=== PATIENT | male | born 2000 | race Caucasian/White ===

== ENCOUNTER 2021-01-17 12:43 | Emergency (ER) | payer SELFPAY ==
--- NOTE | ~2021-01-17 | XR_ITS ---
EXAMINATION: XR abdomen/kub 1V EXAM DATE: 01/17/2021 13:30 INDICATION: Bilateral back pain 01/16/21. TECHNIQUE: Frontal projection of the upper abdomen, frontal projection lower abdomen/pelvis for inter pretation. There is no prior study for comparison. FINDINGS: There is expected amount of colonic stool and gas. No small bowel dilation, nonobstructiv e bowel gas pattern. There are no suspicious calcifications identified. There is no organomegaly suspected. Possible bilateral L5 spondylolysis. Lung bases are clear. IMPRESSION: Possible bilateral L5 spondylolysis. Reviewed, dictated and finalized at location A.
[2021-01-17 12:48] VITALS: BP 112/59; PULSE 101; RESP 16; TEMP 36.6; O2SAT 100
--- NOTE | 2021-01-17 13:06 | ED.MALEGU ---
HPI - Male Genitourinary General Chief complaint: Urogenital-Male Stated complaint: kidney pain Time Seen by Provider: 01/17/21 13:05 Source: patient and RN notes reviewed Mode of arrival: ambulatory Limitations: no limitations History of Present Illness HPI Narrative: 20-year-old male presents with concern for bilateral flank pain. He reports symptoms started this morning reports pain is a 7/10. 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 He denies dysuria, urgency, frequency, hematuria, fever. He reports yesterday he had body aches, chills. Denies those symptoms today. He has been taking Augmentin for approximately 5 days for a soft tissue infection. He denies loss of bowel or bladder function, change in bowel habits, constipation, perianal anesthesia, weakness in any extremity. He denies intervention. MD Complaint: other (Flank pain) Related Data Home Medications Medication Instructions Recorded Confirmed amoxicillin-pot clavulanate 1 tablet PO Q12H 01/17/21 01/17/21 [Augmentin] Allergies Allergy/AdvReac Type Severity Reaction Status Date / Time No Known Allergies Allergy Verified 01/17/21 12:55 Review of Systems Review of Systems: Narrative: CONSTITUTIONAL: Denies malaise, chills, sweats, or fever. CARDIOVASCULAR: Denies chest pain, palpitations, or edema. RESPIRATORY: Denies cough or dyspnea. GASTROINTESTINAL: Denies abdominal pain, nausea, vomiting, diarrhea, bloody, or mucous stools. GENITOURINARY: Denies dysuria frequency, urgency, or hematuria. SKIN: Denies bruising, redness MUSCULOSKELETAL: Reports bilateral mid back pain. History of myalgia yesterday NEUROLOGIC: Denies numbness, weakness, or headache. All systems reviewed & are unremarkable except as noted in HPI and below PMFSH Comments At time of signature, agree with nursing past medical, surgical, social and family history. There is no relevant family history pertinent to the presenting complaint Exam Narrative: Exam Narrative: GENERAL: Well-appearing, well-nourished, and in no acute distress. HEAD: Normocephalic, atraumatic. EYES: PERRLA and EOMI. NECK: Supple. No lymphadenopathy. CHEST: Clear to auscultation. No respiratory distress. HEART: Regular rate and rhythm. Distal pulses palpable and equal, cap refill <3 seconds ABDOMEN: Soft, nontender, nondistended, normal active bowel sounds, no palpable or pulsatile masses. No CVA tenderness MUSCULOSKELETAL: Normal range of motion and strength in all extremities; 5/5 strength with hip flexion and extension, dorsiflexion and extension, knee flexion and extension, plantar flexion and extension. Normal sensation in dermatomal distributions with sensitivity to light touch and pain. No midline back tenderness to palpation. No paraspinal tenderness. Transfers from lying to sitting to standing. SKIN: Warm, dry, no rash. No ecchymosis, erythema, open wounds to back. NEURO: No focal deficits. Alert and oriented x3. Reflexes intact. Normal gait. PSYCH: Normal mood and affect Course Course Emergency Course: Patient is aware of diagnosis, understands and agrees to treatment plan. Anticipatory guidance given. Patient agrees to follow-up as directed and is aware of reasons to seek care at the emergency department. Portions of this record may have been created with voice recognition software Vital Signs Vital signs: Vital Signs Temperature 97.8 F 01/17/21 12:48 Pulse Rate 101 H 01/17/21 12:48 Respiratory Rate 16 01/17/21 12:48 Blood Pressure 112/59 L 01/17/21 12:48 Pulse Oximetry 100 01/17/21 12:48 Temperature 97.8 F 01/17/21 12:48 Pulse Rate 101 H 01/17/21 12:48 Respiratory Rate 16 01/17/21 12:48 Blood Pressure 112/59 L 01/17/21 12:48 Pulse Oximetry 100 01/17/21 12:48 Reviewed. MDM - Male Genitourinary MDM Narrative Medical decision making narrative: No risk factors or findings concerning for epidural abscess, diskitis, vertebral osteomyel
--- NOTE | 2021-01-17 13:31 | PC.NURSE ---
URINE CULTURE PER PROVIDER.
== END 2021-01-17 13:55 | disposition home or self-care (01) ==
PROVIDERS: Emergency Provider Nurse Practitioner
DX: M43.06 Spondylolysis, lumbar region (principal)
CPT/HCPCS: 74018; 81003; 87086; 99213; G0463

== ENCOUNTER 2022-04-23 13:57 | Outpatient (CLI) | payer OTHER, SELFPAY ==
[2022-04-23 19:37] LABS: Basophils Percent Auto 0.5 % (0.2-1.2); Eosinophils Absolute Auto 0.2 K/mm3 (0-0.3); Eosinophils Percent Auto 4.4 % (0-4.4); Hematocrit 48.2 % (42.0-52.0); Immature Granulocyte Absolute 0.01 K/mm3 (0.00-0.031); Immature Granulocyte Percent A 0.2 % (0-0.5); Lymphocytes Absolute Auto 1.45 K/mm3 (0.9-3.2); Mean Corpuscular HGB Conc 33.2 g/dl (32-36); Mean Corpuscular Hemoglobin 29.8 pg (26-34); Mean Corpuscular Volume 89.8 fl (80-100); Mean Platelet Volume 12.4 fl (7.4-10.4); Monocytes Absolute Auto 0.4 K/mm3 (0.1-0.6); Monocytes Percent Auto 9.8 % (2.6-8.5); Neutrophils Absolute Auto 2.2 K/mm3 (1.3-6.7); Neutrophils Percent Auto 51.1 % (45.5-73.1); Platelet Count Result 160 k/mm3 (150-375); Red Blood Count 5.37 M/mm3 (4.6-6.20); Red Cell Distribution Width 12.5 % (11.5-14.5); White Blood Count 4.3 K/mm3 (4.5-10.0)
[2022-04-23 20:24] LABS: Erythrocyte Sedimentation Rate 2 mm/hr (0-20)
[2022-04-26 19:58] LABS: Immunoglobulin E 19 kU/L (<=114)
== END 2022-04-23 13:58 | disposition home or self-care (01) ==
PROVIDERS: PCP Family Medicine; Visit Provider Family Medicine
DX: J39.2 Other diseases of pharynx (principal)
CPT/HCPCS: 36415; 82785; 85025; 85652; 86003